=== PATIENT | female | born 1985 | race Two or more races ===

== ENCOUNTER → 2020-09-15 | Day surgery (SDC) | payer OTHER ==
[~2020-09-15] VITALS: Ht 167.6 cm; Wt 70.0 kg
[~2020-09-15] MED LIST: IV RINGERS,LACTATED 1000ML 1,000 ML IV SCH; LIDOCAINE 2% PF 5 ML VIAL. ONE; PROPOFOL 10 MG/ML (20ML) VIAL. IV ONE
[2020-09-15 10:58] VITALS: BP 121/65
[2020-09-15 15:44] VITALS: BP 92/55
--- NOTE | 2020-09-19 19:18 | PATHOLOGY ---
[facility] Accession Number: [id number] . 01 Material submitted: . PART A: small bowel - SMALL BOWEL BIOPSY PART B: stomach - GASTRIC ANTRUM AND BODY BIOPSY. Modifiers: ANTRUM, body PART C: esophagus - DISTAL ESOPHAGUS BIOPSY AT 34,35, BARRETTS. Modifiers: AT 34, AT 35, distal . 01 Clinical history: . BARRETTS, GERD, DYSPHAGIA EGD . 02 Diagnosis: A. Small bowel biopsies: - No diagnostic abnormalities. . B. Gastric biopsies, gastric body and gastric antrum: - Chronic gastritis, mild. . C. Esophageal biopsies, distal esophagus: - Segments of hyperplastic squamous esophageal mucosa, esophagogastric mucosa, and gastric mucosa showing chronic inflammation and focal foveolar hyperplasia, consistent with reflux esophagitis. . (JPM:maritza; 09/19/2020) [facility] 09/19/2020 1700 Local . 02 Comment: Sections of the small bowel biopsy reveal segments of duodenal and small intestine mucosa. Where best oriented, the mucosal villi show no sprue-like changes or significant inflammatory changes. . Sections of the gastric biopsy reveal segments of gastric antral and antral/body transition mucosa showing congestion and mild chronic inflammation with focal mild antral foveolar hyperplasia and fibrosis of lamina propria. A properly-controlled immunoperoxidase stain for Helicobacter is negative for Helicobacter organisms. . Sections of the distal esophageal biopsy reveal segments of hyperplastic squamous esophageal mucosa, esophagogastric mucosa, and gastric mucosa showing focal foveolar hyperplasia and mild to focal moderate active chronic inflammation consistent with reflux esophagitis. There is no specialized columnar epithelium diagnostic of Baca's change. There is no dysplasia or evidence of malignancy. . Special stain performed: Immunoperoxidase stain for Helicobacter on B1 . (JPM:maritza; 09/19/2020) . 02 Electronically signed: . Moises Rankin MD, Pathologist NPI- [id number] . 01 Gross description: . A. Received in formalin labeled "Marylin Butler, small bowel biopsy" are multiple encinas-brown soft tissue fragments measuring in aggregate 1.4 x 0.5 x 0.3 cm. The specimen is submitted entirely in A1. . B. Received in formalin labeled "Butler, Lizete gastric antrum and body biopsy" are multiple encinas-brown soft tissue fragments measuring in aggregate 1.1 x 0.4 x 0.3 cm. The specimen is submitted entirely in B1. . C. Received in formalin labeled "Btuler, Lizete distal esophagus biopsy Baca's" are multiple encinas-brown soft tissue fragments measuring in aggregate 2.1 x 0.4 x 0.3 cm. The specimen is submitted entirely in C1. ([facility]; 09/17/2020) . GZA/GZA 09/17/2020 0917 Local . 02 Pathologist provided ICD-10: K29.50, K20.80 . 02 CPT . 391992, 702253, [id number], [id number] Specimen Comment: A courtesy copy of this report has been sent to [phone], [phone] Specimen Comment: [id number] Specimen Comment: Report sent to / DR GOEL Performed at: 01 [facility] [address] [facility] [address], [place] [id number] MD Douglas Tejada MD Phone: [phone] Performed at: 02 [facility] [address] [place], [place] [id number] MD Moises Rankin MD Phone: [phone]
== END | disposition home or self-care (01) ==
LOC: SURG 10:31
PROVIDERS: ATTEND Internal Medicine Gastroenterology
DX: R13.10 Dysphagia, unspecified (principal); K22.70 Barrett's esophagus without dysplasia; K21.00 Gastro-esophageal reflux disease with esophagitis, without bleeding; K29.50 Unspecified chronic gastritis without bleeding; K31.89 Other diseases of stomach and duodenum; Z79.899 Other long term (current) drug therapy; Z98.890 Other specified postprocedural states
CPT/HCPCS: 43239; 43450; 81025; J2704